=== PATIENT | female | born 1935 | race Caucasian/White ===

== ENCOUNTER 2019-02-13 05:46 | Inpatient (IN) | payer OTHER ==
[~2019-02-13] VITALS: Ht 162.6 cm; Wt 69.9 kg
[2019-02-13] MEDS ORDERED: CALCITRIOL0.25 MCG (06:10)
[2019-02-13] MEDS ORDERED: NIFEDIPINE20 MG (06:10)
[2019-02-13] MEDS ORDERED: ZOLOFT25 MG (06:10)
[2019-02-13] MEDS ORDERED: CRESTOR10 MG (06:10)
[2019-02-13] MEDS ORDERED: CARDURA XL4 MG (06:10)
[2019-02-13] MEDS ORDERED: ATIVAN0.5 MG (06:10)
[2019-02-13] MEDS ORDERED: COZAAR100 MG (06:10)
[2019-02-13] MEDS ORDERED: NAMENDA5 MG (06:10)
[2019-02-13] MEDS ORDERED: MEDROL4 MG (06:11)
[2019-02-13] MEDS ORDERED: ALBUTEROL0.63 MG/3 (06:12)
[2019-02-22] MEDS ORDERED: BUDESONIDE0.5 MG/2 M IH (07:34)
[2019-02-22] MEDS ORDERED: XOPENEX0.63 MG/3 IH (07:34)
[2019-02-22] MEDS ORDERED: FAMOTIDINE20 MG PO (07:35)
[2019-02-22] MEDS ORDERED: INTESTINEX680 M1 PO (07:35)
[2019-02-22] MEDS ORDERED: Megace PO (07:35)
[2019-02-22] MEDS ORDERED: FUSION PLUS CA1 EACH PO (07:36)
[2019-02-22] MEDS ORDERED: ROBITUSSIN COU237 M1 PO (07:39)
== END 2019-02-22 09:56 | disposition home or self-care (01) | DRG 683 ==
LOC: ER 05:46 → MEDJ 19:15 → SEC-K 19:15 → MEDJ 21:44
PROVIDERS: ADMIT Internal Medicine Cardiovascular Disease
PROC: BW40ZZZ Ultrasonography of Abdomen (ICD-10-PCS; principal; 2019-02-13)
PROC: 3E0F7GC Introduction of Other Therapeutic Substance into Respiratory Tract, Via Natural or Artificial Opening (ICD-10-PCS; 2019-02-13)
PROC: BW4GZZZ Ultrasonography of Pelvic Region (ICD-10-PCS; 2019-02-13)
PROC: 4A033R1 Measurement of Arterial Saturation, Peripheral, Percutaneous Approach (ICD-10-PCS; 2019-02-14)
PROC: B246ZZZ Ultrasonography of Right and Left Heart (ICD-10-PCS; 2019-02-18)
DX: N17.8 Other acute kidney failure (principal); J44.1 Chronic obstructive pulmonary disease with (acute) exacerbation; J44.0 Chronic obstructive pulmonary disease with (acute) lower respiratory infection; N39.0 Urinary tract infection, site not specified; Q61.01 Congenital single renal cyst; J45.41 Moderate persistent asthma with (acute) exacerbation; I31.3 Pericardial effusion (noninflammatory); D63.1 Anemia in chronic kidney disease; I13.10 Hypertensive heart and chronic kidney disease without heart failure, with stage 1 through stage 4 chronic kidney disease, or unspecified chronic kidney disease; N18.3 Chronic kidney disease, stage 3 (moderate); K21.9 Gastro-esophageal reflux disease without esophagitis; J20.9 Acute bronchitis, unspecified; I70.0 Atherosclerosis of aorta; G30.0 Alzheimer's disease with early onset; F02.80 Dementia in other diseases classified elsewhere, unspecified severity, without behavioral disturbance, psychotic disturbance, mood disturbance, and anxiety; I34.0 Nonrheumatic mitral (valve) insufficiency